=== PATIENT | male | born 1985 | race African-American/Black ===

== ENCOUNTER 2019-12-15 09:56 | Emergency (ER) | payer OTHER ==
[2019-12-15 10:21] VITALS: BP 150/90
--- NOTE | 2019-12-15 10:51 | UC ---
Dental HPI - HPI Summary HPI Summary: PATIENT COMPLAINS OF LEFT LOWER DENTAL PAIN FOR ABOUT A WEEK AND A HALF. 3 DAYS AGO THE PAIN GOT SIGNIFICANTLY WORSE AND HE STATES HE HAS BEEN SPITTING OUT BLOODY PUS. HIS LEFT JAW IS SWOLLEN. NO FEVER. NO NAUSEA. HAS A DENTIST APPOINTMENT IN 3 WEEKS AT [facility]. - History of Current Complaint Chief Complaint: UCDentalProblem Stated Complaint: DENTAL COMPLAINT Time Seen by Provider: 12/15/19 10:01 Hx Obtained From: Patient Onset/Duration: Gradual Onset, Lasting Days, Still Present Severity: Moderate Pain Intensity: 5 Pain Scale Used: 0-10 Numeric Aggravating Factor(s): Heat, Cold, Chewing Alleviating Factor(s): Nothing - Allergies/Home Medications Allergies/Adverse Reactions: Allergies Allergy/AdvReac Type Severity Reaction Status Date / Time No Known Allergies Allergy Verified 12/15/19 10:10 Home Medications: Home Medications Amoxicillin/Clavulanate TAB* [Augmentin TAB 875*] 875 mg PO BID #20 tab [Rx] Chlorhexidine MW 0.12% 473ML* [Peridex Mouth Wash 0.12%*] 15 ml SWISH SPIT BID # 1 bottle 12/15/19 [Rx] HYDROcodone/ACETAMIN 5-325 MG* [[place] 5-325 TAB*] 1 tab PO Q6H PRN #20 tab MDD 4 12/15/19 [Rx] Naproxen [Naproxen 500 mg tab] 1 tab PO BID PRN 12/15/19 [History Confirmed ] PMH/Surg Hx/FS Hx/Imm Hx Cardiovascular History: Hypertension - Surgical History Surgical History: Yes Surgery Procedure, Year, and Place: Right hand surgery - 2008. R. knee MCL/ACL repair 2013. R. knee abscess w/ arthroscopy/lavage 07/13/14 - Family History Known Family History: Positive: Non-Contributory - Social History Alcohol Use: Weekly Substance Use Type: None Smoking Status (MU): Light Every Day Tobacco Smoker Type: Cigarettes Amount Used/How Often: 1/2 -1 Have You Smoked in the Last Year: Yes Household Exposure Type: Cigarettes - Immunization History Most Recent Influenza Vaccination: 2007 Most Recent Tetanus Shot: 2009 Most Recent Pneumonia Vaccination: never Review of Systems All Other Systems Reviewed And Are Negative: Yes Constitutional: Positive: Negative ENT: Positive: Dental Pain Cardiovascular: Positive: Negative Gastrointestinal: Positive: Negative Genitourinary: Positive: Negative Physical Exam Triage Information Reviewed: Yes Appearance: Well-Appearing, No Pain Distress, Well-Nourished Vital Signs: Initial Vital Signs Temp 97.7 F 12/15/19 10:07 Pulse 89 12/15/19 10:07 Resp 18 12/15/19 10:07 BP 150/90 12/15/19 10:07 Pulse Ox 99 12/15/19 10:07 Vital Signs Reviewed: Yes Eyes: Positive: Conjunctiva Clear ENT: Positive: Hearing grossly normal, Pharynx normal Dental: Positive: Percussion Tenderness @ - #17, Cervical Lymphadenopathy, Other : - SIGNIFICANT PLAQUE BUILD-UP DIFFUSELY Neck: Positive: Supple, Tenderness @ - left anterior cervical lad, Enlarged Nodes @ - left anterior cervical lad Respiratory: Positive: No respiratory distress, No accessory muscle use Cardiovascular: Positive: Pulses Normal Abdomen Description: Positive: Soft Musculoskeletal: Positive: No Edema Neurological: Positive: Alert Psychological: Positive: Age Appropriate Behavior Skin: Negative: Rashes Dental Complaint Course/Dx - Course Course Of Treatment: NO CLEAR DENTAL ABSCESS ON EXAM TODAY. PATIENT DOES HAVE SIGNIFICANT PLAQUE BUILDUP DIFFUSELY AND I HAVE RECOMMENDED HE KEEP HIS DENTIST APPOINTMENT IN 3 WEEKS. DUE TO PATIENT'S COMPLAINT OF BLOODY PUS DRAINING FROM HIS LEFT LOWER WISDOM TOOTH WILL GO AHEAD AND COVER FOR ABSCESS WITH AUGMENTIN TWICE DAILY FOR 10 DAYS. PERIDEX MOUTH RINSE. NAPROXEN FOR PAIN AND HYDROCODONE FOR BREAKTHROUGH. - Differential Dx/Diagnosis Provider Diagnosis: Pain, dental Discharge ED - Sign-Out/Discharge Documenting (check all that apply): Patient Departure All imaging exams completed and their final reports reviewed: No Studies - Discharge Plan Condition: Stable Disposition: HOME Prescriptions: Amoxicillin/Clavulanate TAB* [Augmentin TAB 875*] 875 mg PO BID #20 tab Chlorhexidine MW 0.12% 473ML* [Peridex Mouth Wash 0.12%*] 15 ml SWISH SPIT BID # 1 bottle HYDROcodone/ACETAMIN 5-325 MG* [[place] 5-325 TAB*] 1 tab PO Q6H PRN #20 tab MDD 4 PRN Reason: Pain Patient Education Materials: Toothache (ED) Referrals: Kassidy Currie MD [Primary Care Provider] - If Needed Additional Instructions: TAKE THE ANTIBIOTICS FOR THE FULL COURSE. RINSE YOUR MOUTH WITH WATER AFTER EATING OR DRINKING ANYTHING. ANTISEPTIC MOUTH RINSE TWICE DAILY. TAKE NAPROXEN NEEDED FOR PAIN, HYDROCODONE FOR BREAKTHROUGH. FOLLOW-UP WITH A DENTIST JANE. OTC ANALGESICS: IBUPROFEN MAX DOSE: 600MG (3 TABS) EVERY 6 HRS OR 800MG (4 TABS) EVERY 8 HRS OR NAPROXEN MAX DOSE: 440MG (2 TABS) EVERY 12 HRS TYLENOL MAX DOSE: 1000MG (2 EXTRA STRENGTH TABS) EVERY 8 HRS OR 650MG (2 REGULAR TABS) EVERY 6 HRS DENTISTS Cory Phillips [place] [facility]. DDS Dentist Office [address], [place] [address] Bradley Miller, DDS [address], [place] [address] Jerman Vera D.D.S. [address], [place] [address] Opens at 8am - Billing Disposition and Condition Condition: STABLE Disposition: Home
== END 2019-12-15 10:50 | disposition home or self-care (01) ==
LOC: UCEAST 09:56
DX: K08.89 Other specified disorders of teeth and supporting structures (principal); R59.0 Localized enlarged lymph nodes; I10 Essential (primary) hypertension; F17.210 Nicotine dependence, cigarettes, uncomplicated
CPT/HCPCS: 99212; G0463